=== PATIENT | female | born 1985 | race American Indian/Alaskan Native ===

== ENCOUNTER 2019-06-03 11:16 | Outpatient (CLI) | payer MEDICAID ==
[2019-06-03 11:28] VITALS: BP 124/82
--- NOTE | 2019-06-03 14:51 | Ultrasound Report ---
ULTRASOUND BIOPHYSICAL PROFILE INDICATION: decreased movement. well being COMPARISON: None available. FINDINGS: heart rate is 149 beats per minute. breathing movement = 2 Gross body movement = 2 tone = 2 Qualitative amniotic fluid volume = 2 IMPRESSION: biophysical profile = 03/28 Signer Name: Andrea Cohen Jr, MD Signed: 06/03/2019 2:46 PM Workstation Name: [id number]
== END 2019-06-03 13:51 | disposition home or self-care (01) ==
LOC: TRG 11:16
PROVIDERS: ATTEND Obstetrics & Gynecology
DX: O36.8120 Decreased fetal movements, second trimester, not applicable or unspecified (principal); Z3A.30 30 weeks gestation of pregnancy
CPT/HCPCS: 59025; 76819

== ENCOUNTER 2019-06-17 22:04 | Outpatient (CLI) | payer MEDICAID ==
[2019-06-17 22:50] VITALS: BP 114/72
[2019-06-17] MEDS ORDERED: LACTATED RINGERS 500 ML IV ONE (23:10)
[2019-06-17 23:40] LABS: Bilirubin,Urine NEG (Negative); Blood,Urine NEG (Negative); Color,Urine Yellow (Yellow); Mucus,Urine 1+ /HPF
--- NOTE | 2019-06-18 03:03 | Ultrasound Report ---
LIMITED OBSTETRICAL ULTRASOUND INDICATION: Possible labor COMPARISON: Biophysical profile 06/03/2019 Intrauterine is again seen. Fetus is in a cephalic position. Cervical length is 3.1 cm with no obvious widening. Placenta is fundal in place anterior and shows no abnormalities. Placenta is fr ee of the internal cervical os. Amniotic fluid volume qualitatively appears within normal limits for this stage of and LEORA is within normal limits at 9.2 cm. cardiac activity was documen pardeep with heart rate of 144 bpm. Anatomical survey was not performed. BIOPHYSICAL PROFILE breathing movements: 2/2 movements: 2/2 posture and tone tone: 2/2 Qualitative amniotic fluid volume: 2/2 Total score: 8/8, within normal limits Signer Name: Kain Gallegos MD Signed: 06/18/2019 2:59 AM Workstation Name: [id number]
== END 2019-06-18 01:07 | disposition home or self-care (01) ==
LOC: TRG 22:04
PROVIDERS: ATTEND Obstetrics & Gynecology
DX: Z34.83 Encounter for supervision of other normal pregnancy, third trimester (principal); Z3A.32 32 weeks gestation of pregnancy
CPT/HCPCS: 36415; 76815; 76819; 81001; 82731

== ENCOUNTER 2019-06-23 21:50 | Outpatient (CLI) | payer MEDICAID ==
[2019-06-23 22:53] LABS: Bacteria,Urine 1+ /HPF (Negative); Bilirubin,Urine NEG (Negative); Blood,Urine NEG (Negative); Color,Urine Yellow (Yellow); Mucus,Urine FEW /HPF; Protein,Urine <15 mg/dL mg/dL (Negative)
--- NOTE | 2019-06-24 00:28 | Ultrasound Report ---
ULTRASOUND OBSTETRIC LIMITED ULTRASOUND BIOPHYSICAL PROFILE INDICATION / CLINICAL INFORMATION: Vaginal pressure, h/o deliveries. LEORA. Clinical gestational age is 33 weeks 4 days. COMPARISON: Ultrasound dated 06/17/19 FINDINGS: BREATHING MOVEMENT = 2 GROSS BODY MOVEMENT = 2 TONE = 2 QUALITATIVE AMNIOTIC FLUID VOLUME = 2 TOTAL BIOPHYSICAL SCORE = 8/8 HEART RATE (beats per minute): 141 AMNIOTIC FLUID INDEX (cm) = 14.0 -- within normal limits PRESENTATION: Cephalic. ADDITIONAL FINDINGS: None. IMPRESSION: 1. Biophysical Score = 8/8 2. Normal LEORA. Signer Name: Thomas Hinojosa MD Signed: 06/24/2019 12:23 AM Workstation Name: [id number]
== END 2019-06-24 | disposition home or self-care (01) ==
LOC: TRG 21:50
PROVIDERS: ATTEND Obstetrics & Gynecology
DX: O21.9 Vomiting of pregnancy, unspecified (principal); Z3A.33 33 weeks gestation of pregnancy
CPT/HCPCS: 59025; 76815; 76819; 81001; 87086

== ENCOUNTER 2019-07-04 20:37 | Outpatient (CLI) | payer MEDICAID ==
[2019-07-04] MEDS ORDERED: LACTATED RINGERS 500 ML IV SCH (21:00)
[2019-07-04 21:42] LABS: Basophils % (Auto) 0.4 % (0.0-1.8); Eosinophils % (Auto) 0.5 % (0.0-4.3); Hematocrit 32.3 % (30.3-42.9); Hemoglobin 10.9 gm/dl (10.1-14.3); Lymphocytes % (Auto) 21.8 % (13.4-35.0); Mean Corpuscular HGB Conc 34 % (30-34); Mean Corpuscular Volume 85 fl (79-97); Monocytes # (Auto) 0.7 K/mm3 (0.0-0.8); Monocytes % (Auto) 8.3 % (0.0-7.3); Platelet Count 209 K/mm3 (140-440); Red Blood Count 3.81 M/mm3 (3.65-5.03); Red Cell Distribution Width 14.2 % (13.2-15.2)
[2019-07-05] MEDS ORDERED: ACETAMINOPHEN 500 MG TAB PO ONE (00:35)
--- NOTE | 2019-07-05 01:24 | Ultrasound Report ---
ULTRASOUND OBSTETRIC LIMITED ULTRASOUND BIOPHYSICAL PROFILE INDICATION / CLINICAL INFORMATION: s/p fall. Clinical Gestational Age (GA): 35 weeks 1 day COMPARISON: 06/23/2019 FINDINGS: BREATHING MOVEMENT = 2 GROSS BODY MOVEMENT = 2 TONE = 2 QUALITATIVE AMNIOTIC FLUID VOLUME = 2 TOTAL BIOPHYSICAL SCORE = 8/8 HEART RATE (beats per minute): 149 AMNIOTIC FLUID INDEX (cm) = 13.8 (normal = 7-24 cm) PRESENTATION: Cephalic. ADDITIONAL FINDINGS: The placenta is located posteriorly with a grade of 2. No evidence of abruption. IMPRESSION: 1. Biophysical Score = 8/8 2. Single viable IUP in a cephalic presentation. Signer Name: Shiloh Engle MD Signed: 07/05/2019 1:20 AM Workstation Name: [email or web address]
[2019-07-05 01:55] VITALS: BP 109/58
== END 2019-07-05 01:45 | disposition home or self-care (01) ==
LOC: TRG 20:37 → LD 21:02 → TRG 07-05 01:45
PROVIDERS: ATTEND Obstetrics & Gynecology
DX: O47.03 False labor before 37 completed weeks of gestation, third trimester (principal); Z3A.35 35 weeks gestation of pregnancy
CPT/HCPCS: 36415; 59020; 59025; 76815; 76819; 85025; 86850; 86900; 86901

== ENCOUNTER 2019-07-23 00:47 | Outpatient (CLI) | payer MEDICAID ==
[2019-07-23 01:04] VITALS: BP 127/87
== END 2019-07-23 03:09 | disposition home or self-care (01) ==
LOC: TRG 00:47
PROVIDERS: ATTEND Obstetrics & Gynecology
DX: O47.1 False labor at or after 37 completed weeks of gestation (principal); Z3A.37 37 weeks gestation of pregnancy
CPT/HCPCS: 59025; Q0177

== ENCOUNTER 2019-07-27 00:49 | Outpatient (CLI) | payer MEDICAID ==
[2019-07-27 02:06] VITALS: BP 138/80
== END 2019-07-27 02:22 | disposition home or self-care (01) ==
LOC: TRG 00:49
PROVIDERS: ATTEND Obstetrics & Gynecology
DX: O62.9 Abnormality of forces of labor, unspecified (principal); Z3A.38 38 weeks gestation of pregnancy
CPT/HCPCS: 59025

== ENCOUNTER 2019-08-02 16:46 | Outpatient (CLI) | payer MEDICAID ==
[2019-08-02 19:13] LABS: Bilirubin,Urine NEG (Negative); Blood,Urine NEG (Negative); Color,Urine Amber (Yellow); Mucus,Urine 3+ /HPF
[2019-08-02] MEDS ORDERED: LIDOCAINE-MPF (1%) 10 MG/1 ML VIAL 5 ML INFILTRATI ONE (19:38)
[2019-08-02] MEDS ORDERED: LACTATED RINGERS 1,000 ML IV ONE (21:21)
[2019-08-02] MEDS ORDERED: diphenhydrAMINE 50 MG/ML VIAL IV ONE (22:00)
[2019-08-03 00:54] VITALS: BP 119/70
== END 2019-08-03 00:15 | disposition home or self-care (01) ==
LOC: TRG 16:46
PROVIDERS: ATTEND Obstetrics & Gynecology
DX: O99.89 Other specified diseases and conditions complicating pregnancy, childbirth and the puerperium (principal); H53.8 Other visual disturbances; O47.1 False labor at or after 37 completed weeks of gestation; Z3A.39 39 weeks gestation of pregnancy
CPT/HCPCS: 59025; 81001; 96365; 96372; J0696; J1200; J7120; 96360; 96361

== ENCOUNTER 2019-08-05 12:11 | Outpatient (CLI) | payer MEDICAID ==
[2019-08-05 15:00] VITALS: BP 112/77
--- NOTE | 2019-08-05 16:42 | Ultrasound Report ---
ULTRASOUND BIOPHYSICAL PROFILE INDICATION: f/u fall. COMPARISON: OB limited ultrasound 07/04/2019 FINDINGS: BREATHING MOVEMENT = 2 GROSS BODY MOVEMENT = 2 TONE = 2 QUALITATIVE AMNIOTIC FLUID VOLUME = 2 TOTAL BIOPHYSICAL SCORE = 03/28 AMNIOTIC FLUID INDEX (cm) = 14.4 PRESENTATION: Cephalic. HEART RATE (beats per minute): 141 IMPRESSION: 1. biophysical profile = 03/28 Signer Name: Amilcar Gill MD Signed: 08/05/2019 4:38 PM Workstation Name: [id number]
== END 2019-08-05 17:13 | disposition home or self-care (01) ==
LOC: TRG 12:11
PROVIDERS: ATTEND Obstetrics & Gynecology
DX: O47.1 False labor at or after 37 completed weeks of gestation (principal); Z3A.39 39 weeks gestation of pregnancy
CPT/HCPCS: 76815; 76819

== ENCOUNTER 2019-08-07 20:02 | Inpatient (IN) | payer MEDICAID ==
[2019-08-07 22:46] LABS: Hematocrit 31.2 % (30.3-42.9); Hemoglobin 10.8 gm/dl (10.1-14.3); Mean Corpuscular HGB Conc 35 % (30-34); Mean Corpuscular Volume 83 fl (79-97); Platelet Count 212 K/mm3 (140-440); Red Blood Count 3.74 M/mm3 (3.65-5.03); Red Cell Distribution Width 14.6 % (13.2-15.2)
[2019-08-07] MEDS ORDERED: OXYTOCIN 20 UNIT/1000ML DRIP 20 UNITS/1,000 ML BAG IV SCH (23:00)
[2019-08-07] MEDS ORDERED: OXYTOCIN DRIP 30 UNITS/500 ML BAG IV SCH (23:00)
[2019-08-07] MEDS ORDERED: MINERAL OIL 30 ML ORAL LIQD PO PRN (23:13)
[2019-08-07] MEDS ORDERED: ZOLPIDEM 5 MG TAB PO PRN (23:15)
[2019-08-07] MEDS ORDERED: FAMOTIDINE 20 MG/2 ML INJ IV ONE (23:42)
[2019-08-07] MEDS ORDERED: ZOLPIDEM 5 MG TAB PO ONE (23:45)
[2019-08-08] MEDS: FAMOTIDINE 20 MG/2 ML INJ IV PRN ×2 (00:05→18:14)
[2019-08-08] MEDS: LACTATED RINGERS 1,000 ML IV SCH ×2 (00:06→03:43)
[2019-08-08] MEDS ORDERED: AMPICILLIN/NS 2 GM/100 ML 2 GM/100 ML BAG IV ONE ×2 (02:00→05:36)
[2019-08-08] MEDS ORDERED: AMPICILLIN/NS 1 GM/50 ML 1 GM/50 ML BAG IV SCH (03:00)
--- NOTE | 2019-08-08 08:52 | History and Physical Report ---
History of Present Illness Date of examination: 08/08/19 Date of admission: 08/07/19 20:02 Chief complaint: Augmentation of labor History of present illness: This is a 33 yo at 40+1 weeks here for augmentation of labor. She is a patient of [facility] with hxof complete previa which resolved on 02/2019 per [facility]. She has a hx of IUGR in the past. Patient has mumur seen by cardiology and no treatment . Past History Past Medical History: no pertinent history Past Surgical History: cholecystectomy, other (ovarrian cyst removal ) [employer] History: herpes Family/Genetic History: hypertension, other (Crohns) - Obstetrical History Expected Date of Delivery: 08/07/19 Actual Gestation: 40 Week(s) 1 Day(s) : 8 Para: 5 Hx # Term Pregnancies: 5 Number of Pregnancies: 2 Spontaneous Abortions: 0 Induced : 0 Number of Living Children: 7 Medications and Allergies Allergies Allergy/AdvReac Type Severity Reaction Status Date / Time ceftriaxone [From Rocephin] Allergy Severe Hives Verified 08/07/19 21:12 acetaminophen [From Lortab] Allergy Intermediate Hives Verified 08/07/19 21:12 hydrocodone bitartrate Allergy Intermediate Hives Verified 08/07/19 21:12 [From Lortab] Home Medications Medication Instructions Recorded Confirmed Last Taken Type No Known Home Medications [No 06/03/19 08/07/19 Unknown History Reported Home Medications] Active Meds: Active Medications Famotidine (Pepcid) 20 mg IV PRN PRN PRN Reason: Indigestion Last Admin: 08/08/19 00:05 Dose: 20 mg Documented by: Lactated Ringer's (Lactated Ringers) 1,000 mls @ 125 mls/hr IV DIRECT HILARIO Last Admin: 08/08/19 03:43 Dose: 125 mls/hr Documented by: Oxytocin/Sodium Chloride (Pitocin/Ns 20 Unit/1000ml Drip) 20 units in 1,000 mls @ 0 mls/hr IV DIRECT HILARIO Oxytocin/Sodium Chloride (Pitocin/Ns 30 Unit/500ml) 30 units in 500 mls @ 1 mls/hr IV TITR HILARIO; Protocol Last Infusion: 08/08/19 08:02 Dose: 10 mls/hr Documented by: Ampicillin Sodium (Ampicillin/Ns 1 Gm/50 Ml) 1 gm in 50 mls @ 100 mls/hr IV Q4H [facility]; Protocol Stop: 08/10/19 23:59 Mineral Oil (Mineral Oil) 30 ml PO QHS PRN PRN Reason: Labor Induction Zolpidem Tartrate (Ambien) 10 mg PO QHS PRN PRN Reason: Sleep Stop: 08/10/19 23:14 Review of Systems All systems: negative - Vital Signs Vital signs: Vital Signs Temp Pulse Resp BP 98.9 F 93 H 18 116/76 08/07/19 21:00 08/07/19 21:00 08/07/19 21:00 08/07/19 21:00 Temp Pulse Resp BP Pulse Ox 98.1 F 122 H 16 116/70 08/08/19 07:00 08/08/19 03:48 08/08/19 04:00 08/08/19 03:48 - Physical Exam Breasts: Positive: normal Cardiovascular: Regular rate, Normal S1 Lungs: Positive: Clear to auscultation, Normal air movement Abdomen: Positive: normal appearance, soft, normal bowel sounds. Negative: distention, tenderness, guarding Genitourinary (Female): Positive: normal external genitalia, normal perenium Vagina: Positive: normal moisture Uterus: Positive: normal size, normal contour Anus/Rectum: Positive: normal perianal skin Extremities: Positive: normal Deep Tendon Reflex Grade: Normal +2 - Obstetrical FHR: category 1 Cervical Dilatation: 3 Cervical Effacement Percentage: 60 station: -2 Uterine Contraction Pattern: Regular Uterine Tone Measurement Phase: Contraction Uterine Contraction Intensity: Moderate Results Result Diagrams: 08/07/19 22:30 Abnormal lab results 08/07/19 Range/Units 22:30 MCHC 35 H (30-34) % All other labs normal. Assessment and Plan A/P IUP 40+1 weeks obesity admit , IVF, labs augment labor GBS + abx in labor AROM clear expect vaginal delivery
[2019-08-08] MEDS ORDERED: DEXMEDETOMIDINE 200 MCG/2 ML VIAL IV ONE (09:25)
[2019-08-08] MEDS ORDERED: SODIUM CHLORIDE P/F VIAL 10 ML 10 ML ONE (09:25)
--- NOTE | 2019-08-08 09:48 | Anesthesia Consultation ---
Anesthesia Consult and Med Hx Date of service: 08/08/19 - Airway Anesthetic Teeth Evaluation: Good ROM Head & Neck: Adequate Mental/Hyoid Distance: Adequate Mallampati Class: Class II Intubation Access Assessment: Probably Good - Pulmonary Exam CTA: Yes - Cardiac Exam Cardiac Exam: RRR - Pre-Operative Health Status ASA Pre-Surgery Classification: ASA2 Proposed Anesthetic Plan: Epidural - Pulmonary Hx Asthma: No COPD: No Hx Pneumonia: No - Cardiovascular System Hx Hypertension: No - Central Nervous System Hx Seizures: No Hx Psychiatric Problems: No - Endocrine Hx Renal Disease: No Hx End Stage Renal Disease: No Hx Hypothyroidism: No Hx Hyperthyroidism: No - Hematic Hx Anemia: No Hx Sickle Cell Disease: No - Other Systems Hx Alcohol Use: No
[2019-08-08] MEDS ORDERED: NALOXONE 2 MG/2 ML INJ IV PRN (10:00)
[2019-08-08] MEDS ORDERED: ePHEDrine SULFATE 50 MG/1 ML INJ IV PRN (10:00)
[2019-08-08] MEDS ORDERED: fentaNYL-BUPIV 2 MCG/ML-0.125% 200 MCG/100 ML BAG EPIDURAL SCH (10:00)
[2019-08-08] MEDS ORDERED: LANOLIN/ZINC/DIMETHICONE (LANSINOH) 7 GM TP PRN (12:47)
[2019-08-08] MEDS ORDERED: WITCH HAZEL/ GLYCERIN PAD TP PRN (12:47)
[2019-08-08] MEDS ORDERED: KETOROLAC 30 MG/1 ML INJ IV PRN (12:47)
[2019-08-08] MEDS ORDERED: HYDROCORTISONE 25 MG RECTAL SUPP PR PRN (12:47)
[2019-08-08] MEDS ORDERED: PROMETHAZINE 25 MG TAB PO PRN (12:47)
[2019-08-08] MEDS ORDERED: MAGNESIUM HYDROXIDE (MOM) ORAL LIQD UDC PO PRN (12:47)
[2019-08-08] MEDS ORDERED: ONDANSETRON 4 MG/2 ML INJ IV PRN (12:47)
[2019-08-08] MEDS ORDERED: HYDROcodone/ACETAMINOPHEN 5-325 MG TAB PO PRN (12:47)
[2019-08-08] MEDS ORDERED: diphenhydrAMINE 25 MG CAP PO PRN (12:47)
[2019-08-08] MEDS ORDERED: ACETAMINOPHEN 325 MG TAB PO PRN (12:47)
--- NOTE | 2019-08-08 12:53 | Procedure Note ---
OB Delivery Note - Delivery Date of Delivery: 08/08/19 Surgeon: BENJA HUFF Estimated blood loss: 300cc - Vaginal Delivery presentation: vertex Delivery position: OA Delivery augmentation: rupture of membranes, pitocin Delivery monitor: external FHT, external uterine Route of delivery: Delivery placenta: spontaneous Delivery cord: nuchal cord, 3 umbilical vessels Episiotomy: none Delivery laceration: none Delivery comments: Patient was noted to be c/c/ +2 station and commenced to push a viable female infant. Cord palpated and easily reduced from around neck. Shoulders delivered easily. Weight 6 pounds 15 oz at 1236. Chelsey team available for stimulation and suction of nares and oropharynx. The cord was clamped and cut and placenta delivered intact at 1242. No tears noted. EBL 300 cc. Patient tolerated procedure well. - Infant A at 1 minute: 8 at 5 minutes: 9 Gender: Female (6 pounds 15 oz)
[2019-08-08] MEDS ORDERED: OXYTOCIN 20 UNIT/1000ML DRIP 20 UNITS/1,000 ML BAG IV SCH (13:00)
[2019-08-08] MEDS ORDERED: PROMETHAZINE 25 MG RECT SUPP PR PRN (13:47)
[2019-08-08] MEDS: oxyCODONE /ACETAMINOPHEN 5-325MG TAB PO PRN ×2 (14:36→22:13)
[2019-08-08] MEDS: IBUPROFEN 600 MG TAB PO SCH ×2 (18:14→23:13)
[2019-08-09 01:29] LABS: Hematocrit 28.2 % (30.3-42.9); Hemoglobin 9.9 gm/dl (10.1-14.3)
[2019-08-09] MEDS: IBUPROFEN 600 MG TAB PO SCH ×3 (05:32→23:26)
[2019-08-09] MEDS ORDERED: TETANUS,DIPH,PERTUSS(ACELL) VACCINE 0.5 ML SYRINGE IM ONE (06:00)
--- NOTE | 2019-08-09 06:44 | Progress Note ---
Assessment and Plan A/P PPD1 Doing well stable consider d/c home tomorrow Subjective - Subjective Date of service: 08/09/19 Principal diagnosis: s/p Interval history: This is a 33 yo at 40+1 weeks here for augmentation of labor. She is a patient of [facility] with hxof complete previa which resolved on 02/2019 per [facility]. She has a hx of IUGR in the past. Patient has mumur seen by cardiology and no treatment . Patient reports: appetite normal, voiding normally, pain well controlled, flatus, ambulating normally : doing well Objective - Vital Signs Latest vital signs: Vital Signs Temp Pulse Resp BP BP Pulse Ox 08/09/19 00:43 98.1 F 93 H 20 113/68 99 08/08/19 22:13 18 08/08/19 20:39 98.2 F 86 20 103/62 97 08/08/19 18:14 20 08/08/19 15:35 98 F 71 20 107/68 08/08/19 14:36 20 08/08/19 13:54 98.2 F 73 20 123/76 08/08/19 13:30 88 98 08/08/19 13:25 89 99 08/08/19 13:20 85 100 08/08/19 13:18 85 119/69 08/08/19 13:15 87 100 08/08/19 13:10 85 100 08/08/19 13:05 88 99 08/08/19 13:03 87 124/67 08/08/19 13:00 89 99 08/08/19 12:55 89 100 08/08/19 12:50 95 H 100 08/08/19 12:48 93 H 127/69 08/08/19 12:45 97 H 99 08/08/19 12:40 95 H 98 08/08/19 12:35 109 H 99 08/08/19 12:33 105 H 132/73 08/08/19 12:30 101 H 99 08/08/19 12:25 101 H 100 08/08/19 12:20 105 H 100 08/08/19 12:18 100 H 166/99 08/08/19 12:15 110 H 100 08/08/19 12:10 98 H 99 08/08/19 12:05 97 H 100 08/08/19 12:03 91 H 130/75 08/08/19 12:00 94 H 100 08/08/19 11:55 101 H 100 08/08/19 11:50 92 H 100 08/08/19 11:48 87 128/61 08/08/19 11:45 88 100 08/08/19 11:40 91 H 100 08/08/19 11:35 93 H 100 08/08/19 11:33 85 126/69 08/08/19 11:30 91 H 100 08/08/19 11:25 93 H 100 08/08/19 11:20 84 100 08/08/19 11:18 86 129/76 08/08/19 11:15 95 H 100 08/08/19 11:10 94 H 100 08/08/19 11:05 86 100 08/08/19 11:03 93 H 115/56 08/08/19 11:00 88 100 08/08/19 10:55 82 100 08/08/19 10:50 87 100 08/08/19 10:48 88 124/62 08/08/19 10:45 88 100 08/08/19 10:40 92 H 100 08/08/19 10:35 91 H 100 08/08/19 10:33 91 H 111/58 08/08/19 10:32 90 94 08/08/19 10:30 95 H 98 08/08/19 10:25 98 H 98 08/08/19 10:20 88 97 08/08/19 10:19 93 H 109/58 08/08/19 10:15 94 H 98 08/08/19 10:10 98 H 98 08/08/19 10:05 101 H 97 08/08/19 10:02 97 H 131/86 08/08/19 10:00 89 98 08/08/19 09:59 91 H 129/74 08/08/19 09:56 99 H 120/71 08/08/19 09:55 98 H 100 08/08/19 09:53 90 124/72 08/08/19 09:50 95 H 129/77 100 08/08/19 09:47 100 H 135/77 08/08/19 09:45 92 H 99 08/08/19 09:44 99 H 136/73 08/08/19 09:41 100 H 132/73 08/08/19 09:40 100 H 98 08/08/19 09:38 105 H 143/76 08/08/19 09:35 96 H 138/77 98 08/08/19 09:30 92 H 99 08/08/19 09:25 92 H 100 08/08/19 09:20 91 H 99 08/08/19 09:15 84 100 08/08/19 09:10 97 H 100 08/08/19 09:05 92 H 100 08/08/19 09:00 96 H 98 08/08/19 08:55 86 98 08/08/19 08:50 90 99 08/08/19 07:00 98.1 F Intake and Output 08/08/19 08/08/19 08/09/19 15:59 23:59 07:59 Intake Total 124.533 240 240 Output Total 1000 Balance -875.467 240 240 Intake: IV 4.533 PITOCin/NS 30 UNIT/500ML 4.533 30 units In 500 ml @ 1 mls/hr IV TITR HILARIO Rx#: [id number] Oral 120 240 240 Output: Urine 1000 Void 1000 Other: Total, Intake Amount 120 240 240 Total, Output Amount 600 # Voids Void 1 1 1 Estimated Blood Loss 300 - Exam Breasts: Present: normal Cardiovascular: Present: Regular rate, Normal S1 Lungs: Present: Clear to auscultation, Normal air movement Abdomen: Present: normal appearance, soft, normal bowel sounds. Absent: distention, tenderness, guarding Uterus: Present: normal, firm, fundal height below umbilicus. Absent: bogginess, tenderness Extremities: Present: normal Deep Tendon Reflex Grade: Normal +2 - Labs Labs: Abnormal lab results 08/09/19 Range/Units 00:41 Hgb 9.9 L (10.1-14.3) gm/dl Hct 28.2 L (30.3-42.9) %
--- NOTE | 2019-08-09 06:46 | Discharge Summary ---
Providers - Providers Date of Admission: 08/07/19 20:02 Date of discharge: 08/10/19 Attending physician: BENJA HUFF MD Primary care physician: BENJA HUFF MD Hospitalization Reason for admission: induction of labor Delivery: Episiotomy: none Laceration: none Incision: normal, dry Other procedures: none complications: none Discharge diagnosis: IUP at term delivered baby: female Hospital course: Delivered viable female . Discharge home PPD2 Condition at discharge: Good Disposition: DC-01 TO HOME OR SELFCARE Plan - Discharge Medications Prescriptions: Ferrous Sulfate [Feosol 325 MG tab] 325 mg PO BID #30 tablet Ibuprofen [Motrin] 600 mg PO Q8H PRN #30 tablet PRN Reason: Pain oxyCODONE /ACETAMINOPHEN [Percocet 5/325] 1 tab PO Q6HR PRN #20 tablet PRN Reason: Pain - Provider Discharge Summary Activity: routine, no sex for 6 weeks, no strenuous exercise Diet: routine Instructions: routine Additional instructions: [] Smoking cessation referral if applicable(refer to patient education folder for contact #) [] Refer to [facility]'s [facility] Booklet Call your doctor immediately for: * Fever > 100.5 * Heavy vaginal bleeding ( >1 pad per hour) * Severe persistent headache * Shortness of breath * Reddened, hot, painful area to leg or breast * Drainage or odor from incision. * Keep incision clean and dry at all times and follow doctor's instructions regarding bathing/showering - Follow up plan Follow up: BENJA HUFF MD [Primary Care Provider] - 09/09/19
[2019-08-09] MEDS: DOCUSATE SODIUM 100 MG CAP PO SCH ×2 (09:33→23:26)
[2019-08-09] MEDS ORDERED: PRENATAL VIT27-FE FUMARATE-FOLIC ACID VIT TAB PO SCH (10:00)
[2019-08-09] MEDS: oxyCODONE /ACETAMINOPHEN 5-325MG TAB PO PRN (10:56)
[2019-08-09] MEDS ORDERED: MEASLES, MUMPS & RUBELLA 12,500 UNIT/0.5 ML VACCINE SUB-Q ONE (12:47)
[2019-08-09] MEDS: FAMOTIDINE 20 MG/2 ML INJ IV PRN (17:47)
[2019-08-10] MEDS: oxyCODONE /ACETAMINOPHEN 5-325MG TAB PO PRN (02:13)
[2019-08-10] MEDS: IBUPROFEN 600 MG TAB PO SCH (06:22)
[2019-08-10 10:03] VITALS: BP 131/84
--- NOTE | 2019-08-10 10:03 | Post Anesthesia Evaluation ---
- Post Anesthesia Evaluation Patient Participated: Yes Airway Patent: Yes Stable Respiratory Function: Yes Nausea/Vomiting: No Temp > 96.8F: Yes Pain Manageable: Yes Adequeate Hydration: Yes Anesthesia Complications: No Block Receding Appropriately: Yes Patient on Ventilator: No
== END 2019-08-10 09:45 | disposition home or self-care (01) | DRG 775 ==
LOC: LD 20:02 → OB 08-08 14:14
PROVIDERS: ADMIT Obstetrics & Gynecology; ATTEND Obstetrics & Gynecology
PROC: 10907ZC Drainage of Amniotic Fluid, Therapeutic from Products of Conception, Via Natural or Artificial Opening (ICD-10-PCS; 2019-08-07)
PROC: 10E0XZZ Delivery of Products of Conception, External Approach (ICD-10-PCS; principal; 2019-08-08)
PROC: 3E0R3BZ Introduction of Anesthetic Agent into Spinal Canal, Percutaneous Approach (ICD-10-PCS; 2019-08-08)
PROC: 00HU33Z Insertion of Infusion Device into Spinal Canal, Percutaneous Approach (ICD-10-PCS; 2019-08-08)
PROC: 3E0234Z Introduction of Serum, Toxoid and Vaccine into Muscle, Percutaneous Approach (ICD-10-PCS; 2019-08-09)
PROC: 3E0134Z Introduction of Serum, Toxoid and Vaccine into Subcutaneous Tissue, Percutaneous Approach (ICD-10-PCS; 2019-08-09)
DX: O99.824 Streptococcus B carrier state complicating childbirth (principal); O99.214 Obesity complicating childbirth; O69.81X0 Labor and delivery complicated by cord around neck, without compression, not applicable or unspecified; Z3A.40 40 weeks gestation of pregnancy; Z37.0 Single live birth; Z23 Encounter for immunization; Z90.49 Acquired absence of other specified parts of digestive tract; Z82.49 Family history of ischemic heart disease and other diseases of the circulatory system; Z88.1 Allergy status to other antibiotic agents; Z88.5 Allergy status to narcotic agent; Z88.8 Allergy status to other drugs, medicaments and biological substances
CPT/HCPCS: 36415; 76815; 76819; 85014; 85018; 85027; 86592; 86850; 86900; 86901; G0378; J0290; J2590; J3490; J7120